=== PATIENT | female | born 1995 | race Caucasian/White ===

== ENCOUNTER → 2022-09-30 09:34 | Outpatient (BNVA) | payer MEDICAID, SELFPAY | PROVIDERS: PCP Family Medicine; Referring Provider Family Medicine; Visit Provider Internal Medicine | DX: O26.892 Other specified pregnancy related conditions, second trimester (principal); R93.1 Abnormal findings on diagnostic imaging of heart and coronary circulation | CPT/HCPCS: 99202 ==

== ENCOUNTER → 2022-10-06 12:46 | Outpatient (REF) | payer MEDICAID, SELFPAY ==
--- NOTE | 2022-10-06 12:53 | CA_ITS ---
Transthoracic Echocardiogram Patient (Last, First, Middle): Barbara Walker, Gender: Female Date of : 1995 Age: 27 Procedure Date: 10/06/2022 Procedure Type: Transthoracic Echocardiogram Location: OP Height: 162.56 cm Weight: 83.92 kg BSA: 1.89 m2 Heart Rate: bpm [place] Supervisor: FARA Referring MD: Austin Burgess MD [id number] Developer: Luis Alfredo Gale MD Symptoms: I42.9 - Cardiomyopathy, unspecified Study Quality: Adequate ECG Rhythm: Sinus Conclusions: - Essentially normal study with LV at upper limits of normal in size Findings Left Ventricle Normal left ventricular size, thickness, and systolic function. The visually estimated ejection fraction is between 60-65%. Spectral Doppler is indicative of a normal filling pattern. Peak GLS is -22.6%, within normal limits. Right Ventricle Normal right ventricular cavity size and systolic function. Atria The left atrium is likely dilated. Interatrial shunt cannot be excluded. The right atrium is normal in size. Aortic Valve Normal aortic valve structure and function. There is no aortic valve stenosis. There is no aortic valve regurgitation. Mitral Valve Normal mitral valve structure and function. There is trace mitral valve regurgitation. There is no mitral valve stenosis. Pulmonic Valve The pulmonic valve is likely normal. Tricuspid Valve Normal tricuspid valve structure. The right ventricular systolic pressure is 25 mmHg. There is no evidence of pulmonary hypertension. Great Vessels All visible segments of the aorta are normal in size. The pulmonary artery was not well visualized. Venous The inferior vena cava is normal in size. Pericardium/Pleural There is no evidence of pericardial effusion. Prior Study Comparison No prior study available for comparison. Measurements 2D Linear Measurements IVSd: 0.68 0.6-0.9/0.6-1.0 cm LVIDd: 5.67 3.9-5.3/4.2-5.9 cm LVIDd Index: 3.00 2.4-3.2/2.2-3.1 cm/m2 LVIDs: 3.29 2.0-3.6 cm LVPWd: 0.65 0.7-1.1 cm LA Diam: 4.30 2.7-3.8/3.0-4.0 cm LAIDs Index: 2.28 1.5-2.3 cm/m2 LV Mass: 166.53 67-162/88-224 g LV Mass Index: 88.11 43-95/49-115 g/m2 LVOT Diam: 2.00 3.0+(-)1.3 cm Mitral Valve MV Pk E: 1.08 MV PK A: 0.29 MV Decel Time: 203.00 E/A: 3.80 E'Lateral: 18.20 E'Medial: 13.40 E/E' Med: 8.10 E/E' Lat: 5.90 PHT: 59.00 MVA PHT: 3.73 Decel [place]: 5.31 Aortic Valve AoV Pk Jose: 1.71 AoV Pk Grad: 12.00 LVOT LVOT Pk Jose: 1.52 LVOT Mn Jose: 1.02 LVOT VTI: 0.31 LVOT Pk Grad: 9.00 LVOT Mn Grad: 5.00 LVOT Diam: 2.00 LVOT Area: 3.14 Diastolic Function MV Pk E: 1.08 MV Pk A: 0.29 E/A: 3.80 E'Medial: 13.40 E/E' Med: 8.10 E' Laterial: 18.20 E/E' Lat: 5.90 Right Ventricle TAPSE (mm): 22.80 TVS' Jose: 12.50 Tricuspid Valve TR Pk Jose: 2.36 TR Pk Grad: 22.00 RA Press: 3.00 RVSP: 25.00 Great Vessels Aorta Sinus of Valsalva: 2.60 2.0-3.5 cm Ao Asc: 2.30 2.1-3.4 cm Pulmonary Valve PV Pk Jose: 1.09 Peak PV Grad: 5.00 Updated in Other Vendor System with Status of Final Luis Alfredo Gale MD electronically signed on 10/08/2022 10:43:09 AM with status of Final
== END ==
LOC: HO.CARD 12:46
PROVIDERS: Visit Provider Internal Medicine
DX: I42.9 Cardiomyopathy, unspecified (principal)
CPT/HCPCS: 93306; 93356

== ENCOUNTER 2023-09-27 10:41 | Outpatient (REF) | payer MEDICAID, SELFPAY ==
[2023-09-27 13:10] LABS: MANUAL DIFF FLAG NO
[2023-09-27 13:18] LABS: Basophils Percent Auto 0.5 % (0-2); Eosinophils Absolute Auto 0.5 X10*3/uL (0.0-0.4); Eosinophils Percent Auto 5.3 % (0-4); Hematocrit 43.6 % (37.0-47.0); Hemoglobin 14.4 g/dl (12.0-16.0); Imm Gran Abs Auto 0.02 X10*3/uL (0.00-0.03); Imm Gran Pct Auto 0.2 % (0.0-0.4); Lymphocytes Absolute Auto 2.8 X10*3/uL (1.2-4.9); Lymphocytes Percent Auto 33.2 % (20-40); Mean Corpuscular Hemoglobin 26.4 pg (27.0-33.0); Mean Corpuscular Volume 79.9 fL (80.0-98.0); Mean Platelet Volume 9.6 fL (9.4-12.3); Monocytes Absolute Auto 0.7 X10*3/uL (0.1-1.2); Neutrophils Absolute Auto 4.5 x10*3/uL (2.0-8.3); Neutrophils Percent Auto 52.8 % (45-73); Platelet Count 345 X10*3/uL (160-400); Red Blood Count 5.46 X10*6/uL (4.20-5.50); White Blood Count 8.5 X10*3/uL (4.8-10.8)
[2023-09-27 14:15] LABS: Alanine Aminotransferase 24 U/L (0-31); Albumin Level 4.6 g/dL (3.5-5.0); Alkaline Phosphatase 56 U/L (39-117); Anion Gap 13 (12-20); Aspartate Amino Transferase 19 U/L (5-31); Bilirubin Direct 0.2 mg/dL (0.0-0.5); Bilirubin Total 0.5 mg/dL (0.0-1.0); Blood Urea Nitrogen 10 mg/dL (9-16); Calcium 9.7 mg/dL (8.4-10.2); Carbon Dioxide 25 mmol/L (22-29); Chloride 105 mmol/L (96-108); Cholesterol 183 mg/dL (<200); Estimated Glomerular Filt Rate > 60; Glucose Random 101 mg/dL (60-115); HDL Cholesterol 56 mg/dL (>40); Iron 91 mcg/dL (30-160); LDL Cholesterol Calculated 108 mg/dL (<100); Percent Iron Saturation 22 % (15-50); Potassium 4.1 mmol/L (3.3-5.1); Sodium 139 mmol/L (135-145); Total Iron Binding Capacity 411 mcg/dL (228-428); Total Protein 7.6 g/dL (6.5-8.0); Triglycerides 95 mg/dL (<150); Unsaturated Iron Binding 320 ug/dL
[2023-09-27 14:24] LABS: Ferritin 31 ng/mL (10-122); Free T4 (Free Thyroxine) 0.97 ng/dL (0.71-1.85); Thyroid Stimulating Hormone 1.96 uIU/mL (0.32-4.0); Vitamin D 25-OH Total 34.9 ng/mL (>30)
[2023-09-27 14:58] LABS: CT PCR NOT DETECTED (Not Detect.); NG PCR NOT DETECTED (Not Detect.)
[2023-09-28 04:05] LABS: HBsAGNum1 0.35 S/CO (0.00-0.99); Hepatitis B Surface Antigen Negative (Negative)
[2023-09-28 05:37] LABS: Syphilis Screen Nonreactive (Nonreactive)
[2023-09-28 05:45] LABS: HBS Num1 0.84 mIU/mL (0-7.99); HIV AB/AG Nonreactive (Nonreactive); HIV Num 1 0.06 S/CO (0.00-0.99); ~Hepatitis B Surface Antibody NONREACTIVE (Nonreactive); ~Hepatitis C Antibody Nonreactive (Nonreactive)
== END 2023-09-27 10:42 | disposition home or self-care (01) ==
LOC: HO.HHCL 10:41
PROVIDERS: Visit Provider Family Medicine
DX: Z00.00 Encounter for general adult medical examination without abnormal findings (principal); Z13.29 Encounter for screening for other suspected endocrine disorder; Z13.21 Encounter for screening for nutritional disorder; Z13.220 Encounter for screening for lipoid disorders; Z11.59 Encounter for screening for other viral diseases; Z11.3 Encounter for screening for infections with a predominantly sexual mode of transmission
CPT/HCPCS: 0353U; 80048; 80061; 80076; 82306; 82728; 83540; 84439; 84443; 85025; 86706; 86780; 86803; 87340; 87389